=== PATIENT | female | born 1995 | race Caucasian/White ===

== ENCOUNTER 2017-08-31 07:52 | Emergency (ER) | payer MEDICAID ==
[~2017-08-31] VITALS: Ht 170.1 cm; Wt 93.0 kg
[2017-08-31 08:27] LABS: BASO % 0.4 % (0.0-1.0); EOS # 0.1 10*3/uL (0.0-0.4); EOS % 1.3 % (1.0-4.0); HEMATOCRIT 41.5 % (37.0-47.0); HEMOGLOBIN 14.3 g/dl (12.0-16.0); LYMPH # 0.8 10*3/uL (1.3-4.4); LYMPH % 8.9 % (27.0-41.0); MEAN CELL VOLUME 84.3 fl (81.0-99.0); MEAN CORPUSCULAR HGB 29.1 pg (27.0-31.0); MEAN CORPUSCULAR HGB CONC 34.5 g/dl (33.0-37.0); MEAN PLATELET VOLUME 10.4 fl (9.6-12.3); MONO # 0.8 10*3/uL (0.1-1.0); MONO % 8.7 % (3.0-9.0); NEUT # 7.4 10*3/uL (2.3-7.9); NEUT % 80.2 % (47.0-73.0); PLATELET COUNT AUTOMATED 206 10*3/uL (130-400); RED BLOOD COUNT 4.92 10*6/uL (4.10-5.10); RED CELL DISTRI WIDTH 12.1 % (0-14.5); WHITE BLOOD COUNT 9.2 10*3/uL (4.8-10.8)
[2017-08-31 08:43] LABS: ALBUMIN 3.6 gm/dl (3.1-4.5); ALKALINE PHOSPHATASE 128 U/L (45-117); BUN 18 mg/dl (7-24); CHLORIDE 102 mmol/L (98-107); CREATININE 0.71 mg/dL (0.55-1.02); SGOT/AST 13 IU/L (3-35); SGPT/ALT 21 U/L (12-78); SODIUM 134 mmol/L (136-145); TOTAL PROTEIN 7.6 gm/dL (6.4-8.2)
[2017-08-31 08:50] LABS: THYROID STIM HORMONE (HS) 0.772 uIU/ml (0.358-4.75)
[2017-08-31 08:57] LABS: TROPONIN I < 0.015 ng/ml (<0.045)
[2017-08-31] MEDS ORDERED: TESSALON PERLE100 M1 PO (09:35)
== END 2017-08-31 09:33 | disposition home or self-care (01) ==
LOC: ED 07:52
PROVIDERS: Emergency Medicine
DX: E11.65 Type 2 diabetes mellitus with hyperglycemia (principal); J20.9 Acute bronchitis, unspecified; R00.0 Tachycardia, unspecified; F17.200 Nicotine dependence, unspecified, uncomplicated

== ENCOUNTER 2018-07-13 06:44 | Emergency (ER) | payer MEDICAID ==
[~2018-07-13] VITALS: Ht 170.1 cm; Wt 90.7 kg
[~2018-07-13 06:44] MED LIST: AMARYL1 M1 PO; AMOXICILLIN500 M2 PO; GLUCOPHAGE1000 MG PO; TESSALON PERLE100 M1 PO; VALTREX1000 MG PO
[2018-07-13] MEDS ORDERED: TYLENOL325 M1 PO (07:34)
[2018-07-13] MEDS ORDERED: VALTREX1000 MG PO (07:34)
[2018-07-13] MEDS ORDERED: DIFLUCAN150 MG PO (07:34)
[2018-07-13] MEDS ORDERED: XYLOCAINE 5%35.44 GM T (07:34)
[2018-07-13] MEDS ORDERED: NAPROSYN500 MG PO (07:34)
== END 2018-07-13 07:43 | disposition home or self-care (01) ==
LOC: ED 06:44
DX: A60.04 Herpesviral vulvovaginitis (principal); E11.9 Type 2 diabetes mellitus without complications

== ENCOUNTER 2019-02-26 21:12 | Emergency (ER) | payer OTHER, MEDICAID ==
[~2019-02-26] VITALS: Ht 170.1 cm; Wt 90.7 kg
[~2019-02-26 21:12] MED LIST changes: +DIFLUCAN150 MG PO; +NAPROSYN500 MG PO; +TYLENOL325 M1 PO; +XYLOCAINE 5%35.44 GM T
[2019-02-26 21:45] LABS: BILIRUBIN NEGATIVE (NEGATIVE); BLOOD 3+ (NEGATIVE); CLARITY CLEAR (CLEAR); COLOR YELLOW (YELLOW); GLUCOSE 3+ (NEGATIVE); KETONE 1+ (NEGATIVE); LEUKO ESTERASE NEGATIVE (NEGATIVE); NITRITE NEGATIVE (NEGATIVE); PH 5.5 (5.0-9.0); SPECIFIC GRAVITY 1.015 (1.005-1.030); UROBILINOGEN 0.2 E.U./dl (0.2-1.0)
[2019-02-26] MEDS ORDERED: XYLOCAINE 5%35.44 GM T (21:46)
[2019-02-26] MEDS ORDERED: VALTREX1000 MG PO (21:46)
[2019-02-26 21:54] LABS: BACTERIA TRACE; EPITHELIAL CELLS 0-2; RBC TNTC rbc/hpf (0-2); WBC 0-2 wbc/hpf (0-5)
== END 2019-02-26 23:29 | disposition home or self-care (01) ==
LOC: ED 21:12
PROVIDERS: Nurse Practitioner Family
DX: A60.00 Herpesviral infection of urogenital system, unspecified (principal); F17.200 Nicotine dependence, unspecified, uncomplicated; E11.65 Type 2 diabetes mellitus with hyperglycemia; Z79.899 Other long term (current) drug therapy